=== PATIENT | female | born 2000 | race American Indian/Alaskan Native ===

== ENCOUNTER 2023-04-06 13:45 | Emergency (ER) | payer OTHER, SELFPAY ==
[2023-04-06 13:48] VITALS: BP 149/108; PULSE 150; RESP 18; TEMP 36.9; O2SAT 100; BMI 21.5
--- NOTE | 2023-04-06 13:50 | ED.GENADULT ---
HPI - General Adult General Chief complaint: Anxiety Stated complaint: weakness numbness in both arms Time Seen by Provider: 04/06/23 14:06 Source: patient Mode of arrival: ambulatory Limitations: no limitations History of Present Illness HPI narrative: 22-year-old female history of anxiety presented today for evaluation of bilateral upper extremities numbness and feeling anxious. Patient admits to history of using cocaine in but did not use for few weeks, patient smokes marijuana daily basis which usually helps her anxiety. No CP, no SOB, no abdominal pain. Related Data Allergies Allergy/AdvReac Type Severity Reaction Status Date / Time No Known Allergies Allergy Verified 04/06/23 13:53 Review of Systems Review of Systems: All other systems are reviewed and are negative Constitutional: Reports as per HPI and Reports no additional constitutional complaints Eyes: Reports as per HPI and Reports no additional eye complaints Reports system reviewed and no additional complaints, except as documented Cardiovascular: Reports as per HPI and Reports no additional cardiovascular complaints Respiratory: Reports as per HPI and Reports no additional respiratory complaints Gastrointestinal: Reports as per HPI and Reports no additional gastrointestinal complaints Genitourinary: Reports no additional female genitourinary complaints Musculoskeletal: Reports no additional musculoskeletal complaints Skin/Breast: Reports system reviewed and no additional complaints, except as docu Psychiatric: Reports no additional psychiatric complaints Endocrine: Reports no additional endocrine complaints Hematologic/Lymphatic: Reports no additional hematologic/lymphatic complaints Allergic/Immunologic: Reports no additional allergic/immunologic complaints Reports system reviewed and no additional complaints, except as documented and Reports Abnormal speech present [facility] Social History Social History Advance Directives: No Advance Directives Information Provided: Yes Physical Exam ED Vital Signs: Vital Signs - 24 hr 04/06/23 13:48 Temperature 98.4 F Pulse Rate 150 H Respiratory Rate 18 Blood Pressure 149/108 H Pulse Oximetry 100 Oxygen Delivery Method Room Air BMI result Body Mass Index 21.5 Vital signs have been reviewed as appeared to be correct. Blood pressure elevated. Heart rate elevated. Respiration rate normal. Temperature normal. Oxygen saturation normal. Appearance: Anxious, Alert. Oriented X3. No acute distress. Head: Normal external exam. Normocephalic. Atraumatic. No Lema signs noted. No raccoon eyes noted Eyes: PERRLA. EOMI. Conjunctiva and sclera normal. Eyelids normal. ENT: TM's Normal. Pharynx normal. Uvula midline. Moist mucous membranes. No trismus noted. No drooling noted. No muffled voice noted. Neck: Normal inspection. Neck supple. FROM. No adenopathy. Thyroid Normal. No meningeal signs. No neck mass noted. CVS: Tachycardia. Heart sound normal. No murmurs noted. Pulses normal throughout. Respiratory: No respiratory distress. Painless inspiration. Breath sounds normal. No wheezes/rales/rhonchi noted. Chest nontender. No accessory muscle usage noted or decreased air movement noted. Abdomen: Soft and nontender. Bowel sounds normal in all 4 quadrants. No distention noted. No organomegaly noted. No visible injury noted. Back: No CVA tenderness. Full range of motion noted. Skin: Skin warm and dry. Normal skin color. Normal skin turgor. No rashes/lesions/lacerations noted. Extremities: No lower extremity edema. Extremities exhibit normal range of motion. Extremities nontender. Neuro: Oriented X 3. Cranial nerve exam: II-XII are grossly intact No motor deficit. No sensory deficit. Reflexes normal. Course Course Course Narrative: RME- 22 year old female presents for evaluation of numbness in both hands that has been constant for the last few days. Reports intermittent chest pains. Endorses history of anxiety. In triage the, the patient's heart rate is as high as 160. Plan for EKG, labs, drug screen. Given the elevated heart rate, did discussed with charge and she gave the patient room 9. The patient was brought back Reevaluation(s) Reevaluation #1: Anxiety, unremarkable labs, patient feels better after Ativan, TSH is low awaiting for the free T4 do determine if the patient needs thyroid replacement, case signed out to pending free T4 level Time: 15:51 Medications Administered Discontinued Medications Generic Name Dose Route Start Last Admin Trade Name Freq PRN Reason Stop Dose Admin Lorazepam 1 mg 04/06/23 14:14 04/06/23 14:30 Lorazepam 1 Mg Tablet PO 04/06/23 14:15 1 mg ONCE ONE Administration Medical Decision Making Differential Diagnosis Differential Diagnoses: The differential diagnosis associated with the presentation includes (Anxiety, electrolyte abnormalities, severe anemia, thyroid disorder.) Lab Data MDM Lab Attestation statement: I reviewed the patient's lab results. 04/06/23 14:36 04/06/23 14:36 Labs: Lab Results 04/06/23 04/06/23 04/06/23 Range/Units 14:36 14:36 14:36 WBC 7.8 (4.8-10.8) X10*3/uL RBC 5.21 (4.20-5.50) X10*6/uL Hgb 15.6 (12.0-16.0) g/dl Hct 46.0 (37.0-47.0) % MCV 88.3 (80.0-98.0) fL MCH 29.9 (27.0-33.0) pg MCHC 33.9 (31.0-35.0) g/dl RDW 11.1 (11.0-16.0) % Plt Count 294 (160-400) X10*3/uL MPV 9.4 (9.4-12.3) fL Immature Gran % (Auto) 0.3 (0.0-0.4) % Neut % (Auto) 72.0 (45-73) % Lymph % (Auto) 21.8 (20-40) % [place] % (Auto) 4.8 (2-11) % Eos % (Auto) 0.6 (0-4) % Baso % (Auto) 0.5 (0-2) % Lymph # (Auto) 1.7 (1.2-4.9) X10*3/uL [place] # (Auto) 0.4 (0.1-1.2) X10*3/uL Eos # (Auto) 0.1 (0.0-0.4) X10*3/uL Baso # (Auto) 0.0 (0.0-0.2) X10*3/uL Abs Immat Gran (auto) 0.02 (0.00-0.03) X10*3/uL Absolute Neuts (auto) 5.6 (2.0-8.3) x10*3/uL Absolute Nucleated RBC 0.000 (0.0-0.012) X10*3/uL Nucleated RBC % (auto) 0.0 (0.0-0.2) /100WBC PT 11.5 (10.0-13.1) SEC INR 1.0 (0.9-1.1) APTT 32.5 (26.0-36.4) SEC Sodium 142 (135-145) mmol/L Potassium 3.9 (3.3-5.1) mmol/L Chloride 107 (96-108) mmol/L Carbon Dioxide 22 (22-29) mmol/L Anion Gap 17 (12-20) BUN 10 (9-16) mg/dL Creatinine 0.83 (0.5-1.4) mg/dL Estim Creat Clear Calc 93.3 Estimated GFR > 60 Random Glucose 90 (60-115) mg/dL Calcium 10.3 H (8.4-10.2) mg/dL Magnesium 2.1 (1.6-2.6) mg/dL Total Bilirubin 1.7 H (0.0-1.0) mg/dL AST 16 (5-31) U/L ALT 13 (0-31) U/L Alkaline Phosphatase 57 (39-117) U/L Troponin I High Sens (<3.5-17.0) ng/L Total Protein 7.8 (6.5-8.0) g/dL Albumin 4.9 (3.5-5.0) g/dL Lipase 23 (8-78) U/L TSH 0.19 L (0.32-4.0) uIU/mL 04/06/23 Range/Units 14:36 WBC (4.8-10.8) X10*3/uL RBC (4.20-5.50) X10*6/uL Hgb (12.0-16.0) g/dl Hct (37.0-47.0) % MCV (80.0-98.0) fL MCH (27.0-33.0) pg MCHC (31.0-35.0) g/dl RDW (11.0-16.0) % Plt Count (160-400) X10*3/uL MPV (9.4-12.3) fL Immature Gran % (Auto) (0.0-0.4) % Neut % (Auto) (45-73) % Lymph % (Auto) (20-40) % [place] % (Auto) (2-11) % Eos % (Auto) (0-4) % Baso % (Auto) (0-2) % Lymph # (Auto) (1.2-4.9) X10*3/uL [place] # (Auto) (0.1-1.2) X10*3/uL Eos # (Auto) (0.0-0.4) X10*3/uL Baso # (Auto) (0.0-0.2) X10*3/uL Abs Immat Gran (auto) (0.00-0.03) X10*3/uL Absolute Neuts (auto) (2.0-8.3) x10*3/uL Absolute Nucleated RBC (0.0-0.012) X10*3/uL Nucleated RBC % (auto) (0.0-0.2) /100WBC PT (10.0-13.1) SEC INR (0.9-1.1) APTT (26.0-36.4) SEC Sodium (135-145) mmol/L Potassium (3.3-5.1) mmol/L Chloride (96-108) mmol/L Carbon Dioxide (22-29) mmol/L Anion Gap (12-20) BUN (9-16) mg/dL Creatinine (0.5-1.4) mg/dL Estim Creat Clear Calc Estimated GFR Random Glucose (60-115) mg/dL Calcium (8.4-10.2) mg/dL Magnesium (1.6-2.6) mg/dL Total Bilirubin (0.0-1.0) mg/dL AST (5-31) U/L ALT (0-31) U/L Alkaline Phosphatase (39-117) U/L Troponin I High Sens < 2.7 (<3.5-17.0) ng/L Total Protein (6.5-8.0) g/dL Albumin (3.5-5.0) g/dL Lipase (8-78) U/L TSH (0.32-4.0) uIU/mL Discharge Plan Discharge Clinical Impression: Acute anxiety, Hyperventilation Patient Disposition: Still a Patient Instructions: Anxiety (ED) Referrals: Carla Kwok, SALES SERVICE PROFESSIONAL [Primary Care Provider] -
--- NOTE | 2023-04-06 13:54 | ECG_ITS ---
Test Reason : cp Blood Pressure : / mmHG Vent. Rate : 136 BPM Atrial Rate : 136 BPM P-R Int : 148 ms QRS Dur : 080 ms QT Int : 284 ms P-R-T Axes : 079 115 018 degrees QTc Int : 427 ms Sinus tachycardia Biatrial enlargement Abnormal ECG No previous ECGs available Referred By: Brady Scott Electronically Signed By:DAVID VARGAS
--- OUTSIDE RECORDS SUMMARY | 2023-04-06 14:20 | XMS_ITS | Continuity of Care Document ---
Author Name Unknown Organization [facility] Megan s [facility] Address [address] [place] [address], [address] [place] [address]- Care Team Providers Care Electrical And Instrument Engineer Name Role Phone Carla Kwok NP Primary Care Physician Encounter [facility] Date(s): 01/30/23 - 03/01/23 [facility] CamposPhysicians Own Pharmacys [facility] [address] [facility], [address] [place], [place] [address] Attending Physician: Keith Liu Admitting Physician: Keith Liu Referring Physician: AdmKeith corbin Medications cloNIDine 0.1 mg oral tablet 0.1 mg, 1, tablet, By Mouth, 2 times a day, can cut in half (0.05mg) if whole tablet is sedating., # 60 tablet, Refills 0, Tot. Refills 0, Maintenance, 02/19/23 15:50:00 EDT, Route to Pharmacy Electronically, [facility]/pharmacy #[id number], Partial fill upon una... Start Date: 02/19/23 Stop Date: 03/21/23 Status: Ordered sertraline 50 mg oral tablet 2.5 tablet = 125 mg, By Mouth, Daily, # 75 tablet, 0 Refills, Maintenance, 03/21/23 15:49:00 EDT, Tablet, [facility]/pharmacy #[id number], Partial fill upon patient request if the prescription is for a schedule II opioid drug., 162, cm, 08/21/22 10:02:00 EDT, [place]... Start Date: 03/21/23 Stop Date: 04/20/23 Status: Ordered sertraline 50 mg oral tablet 2.5 tablet = 125 mg, By Mouth, Daily, for 30 days, # 75 tablet, 0 Refills, Hard Stop 03/21/23 15:49:00 EDT, 02/19/23 15:49:00 EDT, Tablet, [facility] #[id number], Partial fill upon patient request if theprescription is for a schedule II opioid drug., 162... Start Date: 02/19/23 Stop Date: 03/21/23 Status: Ordered Patient Care team information Care Team Personnel Name: Carla Kwok NP Position: [facility] Associate Professional Member Role: PCP Address: Address: [address] [place] [address] [place], [place] [address] Name: Michael Liao Position: [facility] Outreach Member Role: Lifetime Consulting Physician
--- OUTSIDE RECORDS SUMMARY | 2023-04-06 14:20 | XMS_ITS | Continuity of Care Document ---
Author Name Unknown Organization [facility] s [facility] Address [address] [place] [address], [address] [place] [address]- Care Team Providers Care Test Boring Crew Chief Name Role Phone Rissa ORTIZ, Carla Primary Care Physician Encounter [facility] Date(s): 01/22/23 - [facility] [address] [facility] [place], [address] [place], [place] [address] Attending Physician: Talita Neely DO Admitting Physician: Talita Neely DO Referring Physician: Carla Kwok NP Medications cloNIDine 0.1 mg oral tablet 0.1 mg, 1, tablet, By Mouth, 2 times a day, can cut in half (0.05mg) if whole tablet is sedating., # 60 tablet, Refills 0, Tot. Refills 0, Maintenance, 02/19/23 15:50:00 EDT, Route to Pharmacy Electronically, [facility]/pharmacy #[id number], Partial fill upon una... Start Date: 02/19/23 Stop Date: 03/21/23 Status: Ordered sertraline 50 mg oral tablet 2.5 tablet = 125 mg, By Mouth, Daily, # 75 tablet, 0 Refills, Maintenance, 03/21/23 15:49:00 EDT, Tablet, [facility]/pharmacy #[id number], Partial fill upon patient request if the prescription is for a schedule II opioid drug., 162, cm, 08/21/22 10:02:00 EDT, [place]... Start Date: 03/21/23 Stop Date: 04/20/23 Status: Ordered sertraline 50 mg oral tablet 2.5 tablet = 125 mg, By Mouth, Daily, for 30 days, # 75 tablet, 0 Refills, Hard Stop 03/21/23 15:49:00 EDT, 02/19/23 15:49:00 EDT, Tablet, [id number], Partial fill upon patient request if theprescription is for a schedule II opioid drug., 162... Start Date: 02/19/23 Stop Date: 03/21/23 Status: Ordered Patient Care team information Care Team Personnel Name: Carla Kwok NP Position: [facility] Associate Professional Member Role: PCP Address: Address: [address] [place] [address] [place] [address]- Name: Michael Liao Position: [facility] Outreach Member Role: Lifetime Consulting Physician
[2023-04-06] MEDS: LORazepam 1 MG TABLET PO (14:30)
[2023-04-06 14:44] LABS: MANUAL DIFF FLAG NO
[2023-04-06 14:46] LABS: Basophils Percent Auto 0.5 % (0-2); Eosinophils Absolute Auto 0.1 X10*3/uL (0.0-0.4); Eosinophils Percent Auto 0.6 % (0-4); Hemoglobin 15.6 g/dl (12.0-16.0); Imm Gran Abs Auto 0.02 X10*3/uL (0.00-0.03); Imm Gran Pct Auto 0.3 % (0.0-0.4); Lymphocytes Absolute Auto 1.7 X10*3/uL (1.2-4.9); Lymphocytes Percent Auto 21.8 % (20-40); Mean Corpuscular HGB Conc 33.9 g/dl (31.0-35.0); Mean Corpuscular Hemoglobin 29.9 pg (27.0-33.0); Mean Corpuscular Volume 88.3 fL (80.0-98.0); Mean Platelet Volume 9.4 fL (9.4-12.3); Monocytes Absolute Auto 0.4 X10*3/uL (0.1-1.2); Monocytes Percent Auto 4.8 % (2-11); Neutrophils Absolute Auto 5.6 x10*3/uL (2.0-8.3); Platelet Count 294 X10*3/uL (160-400); Red Blood Count 5.21 X10*6/uL (4.20-5.50); Red Cell Distribution Width 11.1 % (11.0-16.0); White Blood Count 7.8 X10*3/uL (4.8-10.8)
[2023-04-06 14:52] LABS: Prothrombin Time 11.5 SEC (10.0-13.1)
[2023-04-06 14:55] LABS: Partial Thromboplastin Time 32.5 SEC (26.0-36.4)
[2023-04-06 15:07] LABS: Alanine Aminotransferase 13 U/L (0-31); Albumin Level 4.9 g/dL (3.5-5.0); Alkaline Phosphatase 57 U/L (39-117); Anion Gap 17 (12-20); Aspartate Amino Transferase 16 U/L (5-31); Bilirubin Total 1.7 mg/dL (0.0-1.0); Blood Urea Nitrogen 10 mg/dL (9-16); Calcium 10.3 mg/dL (8.4-10.2); Carbon Dioxide 22 mmol/L (22-29); Chloride 107 mmol/L (96-108); Creatinine Clr Calc Pharmacy 93.3; Estimated Glomerular Filt Rate > 60; Glucose Random 90 mg/dL (60-115); Lipase 23 U/L (8-78); Magnesium 2.1 mg/dL (1.6-2.6); Potassium 3.9 mmol/L (3.3-5.1); Sodium 142 mmol/L (135-145); Total Protein 7.8 g/dL (6.5-8.0)
[2023-04-06 15:11] LABS: Troponin-I High Sensitivity < 2.7 ng/L (<3.5-17.0)
[2023-04-06 15:22] LABS: TSH reflex Free T4 0.19 uIU/mL (0.32-4.0)
[2023-04-06 15:53] VITALS: BP 129/83; PULSE 96; RESP 20; TEMP 36.7; O2SAT 97
[2023-04-06 15:58] LABS: Free T4 (Free Thyroxine) 1.21 ng/dL (0.71-1.85)
[2023-04-06 16:03] LABS: UPreg QC Valid YES
[2023-04-06 16:04] LABS: Appearance Urine Clear; Color Urine Dark Yellow; Glucose Urine UA Negative (Negative); Leukocyte Esterase Urine Moderate (2+) (Negative); Nitrite Urine Negative (Negative); Specific Gravity - Urine 1.025 (1.005-1.025); UMIC TRIGGER UACC YES; Urine Blood Negative (Negative); Urine Ketones 15 mg/dL (Negative); Urine Protein Trace mg/dL (Neg-Trace)
[2023-04-06 16:05] VITALS: BP 121/80; PULSE 101; RESP 16; O2SAT 98
[2023-04-06 16:05] LABS: Urine Pregnancy NEGATIVE (NEGATIVE)
[2023-04-06 16:15] LABS: Bacteria Urine None Seen (None Seen); Hyaline Casts Urine 0-2 /LPF (0-2); WBC Urine 0-5 /HPF (0-5)
[2023-04-06 16:16] LABS: Amphetamine Screen Urine Not Detected (Not Detect); Barbiturates, Urine Not Detected (Not Detect); Benzodiazepines Screen Urine Not Detected (Not Detect); Cannabinoid Screen Urine POSITIVE (Not Detect); Cocaine Screen Urine Not Detected (Not Detect); Fentanyl, urine POSITIVE (Not Detect); Opiate Screen Urine Not Detected (Not Detect); Phencyclidine Screen Urine Not Detected (Not Detect)
== END 2023-04-06 16:16 | disposition home or self-care (01) ==
PROVIDERS: Physician Assistant; Emergency Provider Emergency Medicine; PCP Nurse Practitioner Family
DX: F41.9 Anxiety disorder, unspecified (principal); R06.4 Hyperventilation; F12.90 Cannabis use, unspecified, uncomplicated
CPT/HCPCS: 36415; 80053; 80307; 81001; 81025; 83690; 83735; 84439; 84443; 84484; 85025; 85610; 85730; 93005; 99284